=== PATIENT | male | born 1980 | race Caucasian/White ===

== ENCOUNTER 2018-01-20 06:53 | Emergency (ER) | payer BC ==
[2018-01-20 07:04] VITALS: RESP 18; TEMP 98.8
[2018-01-20] MEDS ORDERED: DIPH,PERTUS(ACELL)TETVAC-LF 0.5 ML VIAL IM ONE (07:14)
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
[2018-01-20 10:11] VITALS: BP 142/97; PULSE 64
== END 2018-01-20 10:09 | disposition home or self-care (01) ==
LOC: EC 06:53
DX: S61.411A Laceration without foreign body of right hand, initial encounter (principal); Z87.891 Personal history of nicotine dependence; Z23 Encounter for immunization; V19.9XXA Pedal cyclist (driver) (passenger) injured in unspecified traffic accident, initial encounter; W25.XXXA Contact with sharp glass, initial encounter; Y92.89 Other specified places as the place of occurrence of the external cause
CPT/HCPCS: 12002; 90471; 90715; 99283

== ENCOUNTER 2021-03-01 23:29 | Inpatient (IN) | payer BC ==
--- NOTE | 2021-03-02 00:34 | ED ---
Psych HPI - General Chief Complaint: Psychiatric Symptoms Stated Complaint: Mental Health Time Seen by Provider: 03/01/21 23:33 Source: patient, RN notes reviewed Mode of arrival: ambulatory Limitations: no limitations - History of Present Illness Initial Comments: 40-year-old male presents to the emergency Department with chief complaint of depression. Patient states been suffering compression for long period time he states that he drinks because of the depression. He states she's attempted to quit but states cannot stop drinking. He states she's had some suicidal thoughts he states his just hopeless denies any plan at this time. Patient does admit to marijuana use no other drug use. Patient states he drinks approximately a pint a day he has no history of seizures. Patient states she does not get severe withdrawal symptoms. Denies any physical complaints other states that he wakes up with bruises because he falls a lot. He states he has some bruising of his left eye but denies any blurred vision, headache, neck pain - Related Data Home Medications Medication Instructions Recorded Confirmed No Known Home Medications 01/20/18 01/20/18 Allergies Allergy/AdvReac Type Severity Reaction Status Date / Time No Known Allergies Allergy Verified 03/01/21 23:32 Review of Systems ROS Statement: Those systems with pertinent positive or pertinent negative responses have been documented in the HPI. ROS Other: All systems not noted in ROS Statement are negative. Past Medical History Past Medical History: No Reported History History of Any Multi-Drug Resistant Organisms: None Reported Past Surgical History: Appendectomy, Orthopedic Surgery Past Psychological History: No Psychological Hx Reported Smoking Status: Never smoker Past Alcohol Use History: Heavy Past Drug Use History: None Reported General Exam Limitations: no limitations General appearance: alert, in no apparent distress Head exam: Present: atraumatic, normocephalic, normal inspection Eye exam: Present: normal appearance, PERRL, EOMI, periorbital tenderness (Minimal left with ecchymosis noted). Absent: scleral icterus, conjunctival injection, periorbital swelling ENT exam: Present: normal exam, normal oropharynx, mucous membranes moist Neck exam: Present: normal inspection, full ROM. Absent: tenderness, meningismus, lymphadenopathy Respiratory exam: Present: normal lung sounds bilaterally. Absent: respiratory distress, wheezes, rales, rhonchi, stridor Cardiovascular Exam: Present: regular rate, normal rhythm, normal heart sounds. Absent: systolic murmur, diastolic murmur, rubs, gallop, clicks GI/Abdominal exam: Present: soft, normal bowel sounds. Absent: distended, tenderness, guarding, rebound, rigid Neurological exam: Present: alert, oriented X3, CN II-XII intact, reflexes normal. Absent: motor sensory deficit Psychiatric exam: Present: depressed Skin exam: Present: warm, dry, intact, normal color. Absent: rash Course Vital Signs 03/01/21 23:30 Temperature 98.2 F Pulse Rate 65 Respiratory 18 Rate Blood Pressure 154/107 O2 Sat by Pulse 97 Oximetry - Reevaluation(s) Reevaluation #1: 03/02/21 00:33 Patient offered benzodiazepines for possible withdrawal he states he does not have any symptoms that are bothersome. Medical Decision Making - Medical Decision Making Patient evaluated by EPS will be admitted for psychiatric treatment. Disposition Clinical Impression: Depression, Alcohol abuse Disposition: TRANSFER TO PSYCH HOSP/UNIT Condition: Stable Referrals: Elvis Pierce MD [Primary Care Provider] - 1-2 days
[2021-03-02] MEDS ORDERED: diazePAM 5 MG TAB PO STA (00:40)
[2021-03-02] MEDS ORDERED: LORazepam 1 MG TAB PO PRN ×2 (02:04)
[2021-03-02] MEDS ORDERED: ONDANSETRON ODT 4 MG TAB PO PRN (02:04)
[2021-03-02] MEDS ORDERED: LORazepam 2 MG/ML INJ IM PRN ×2 (02:04)
[2021-03-02] MEDS ORDERED: MAGNESIUM HYDROXIDE 2,400 MG/10 ML CUP PO PRN (02:04)
[2021-03-02] MEDS ORDERED: MAG HYDROX/AL HYDROX/SIMETH 30 ML CUP PO PRN (02:04)
[2021-03-02] MEDS ORDERED: HALOPERIDOL LACTATE 5 MG/ML 1 ML VIAL IM PRN (02:04)
[2021-03-02] MEDS: chlordiazePOXIDE 25 MG CAP PO SCH ×4 (02:48→22:20)
[2021-03-02 06:59] LABS: Basophils # (A) 0.1 k/uL (0-0.2); Basophils % (A) 1 %; Eosinophils # (A) 0.1 k/uL (0-0.7); Eosinophils % (A) 1 %; HCT 50.4 % (39.0-53.0); HGB 17.1 gm/dL (13.0-17.5); Lymphocytes # (A) 1.3 k/uL (1.0-4.8); Lymphocytes % (A) 12 %; MCH 31.1 pg (25.0-35.0); MCV 91.5 fL (80.0-100.0); Mean Platelet Volume 6.6; Monocytes # (A) 0.6 k/uL (0-1.0); Monocytes % (A) 5 %; Neutrophils # (A) 8.9 k/uL (1.3-7.7); Neutrophils % (A) 81 %; Platelet Count 281 k/uL (150-450); RBC 5.51 m/uL (4.30-5.90); RDW 12.9 % (11.5-15.5)
[2021-03-02 07:09] LABS: ALT 30 U/L (4-49); AST 43 U/L (17-59); African American GFR (CKD) >90 (>60 ml/min/1.73 sqM); Albumin 4.7 g/dL (3.5-5.0); Alkaline Phosphatase 97 U/L (38-126); Anion Gap 9 mmol/L; Bilirubin, Delta 0.2 mg/dL (0.0-0.2); Blood Urea Nitrogen 6 mg/dL (9-20); Calcium 9.7 mg/dL (8.4-10.2); Carbon Dioxide 27 mmol/L (22-30); Chloride 106 mmol/L (98-107); Glucose 106 mg/dL (74-99); Non-African American GFR(CKD) >90 (>60 ml/min/1.73 sqM); Potassium 4.1 mmol/L (3.5-5.1); Sodium 142 mmol/L (137-145); Total Bilirubin 1.2 mg/dL (0.2-1.3); Total Protein 7.4 g/dL (6.3-8.2)
[2021-03-02] MEDS ORDERED: NICOTINE 14MG/24HR PATCH TRANSDERM SCH (09:00)
[2021-03-02] MEDS ORDERED: cloNIDine 0.2 MG/24HR PATCH TRANSDERM SCH (09:30)
[2021-03-02] MEDS: OLANZapine 5 MG TAB PO SCH ×3 (10:28→22:20)
[2021-03-02 14:42] LABS: Chol/HDL Ratio 3.37; Cholesterol 199 mg/dL (0-200); LDL Cholesterol,Calculated 119.2 mg/dL (0.0-131.0)
[2021-03-02 15:11] LABS: Hemoglobin A1C 5.4 % (4.0-6.0)
[2021-03-03] MEDS: OLANZapine 5 MG TAB PO SCH ×3 (09:05→21:53)
[2021-03-03] MEDS: chlordiazePOXIDE 25 MG CAP PO SCH (09:05)
--- NOTE | 2021-03-03 13:38 | PN ---
PROGRESS NOTE DATE OF SERVICE: 03/03/2021. CHIEF COMPLAINT: The patient presented with depression. He has relapsed into drinking. He has a long- term drinking history and has struggled to attain sobriety. INTERVAL HISTORY: Patient has been doing fair. He had a quiet day yesterday. He tends to keep to himself. He will wander the unit. He does not interact much with others. He has a reserved manner. He attended 2 groups yesterday and seemed to be comfortable in the groups. He said he slept fair last night. Today he has been up. He comes out in the day area. Again, he has been wandering about. He mostly keeps to himself. CIWA scores included a score of 14 at 0039 hours. He was started on Librium. His next score at 3:00 am came down to a 7. He has had a lower score since then. Today, his scores have been 0, though he has been on a fairly high dose of Librium 50 mg 3 times a day. We discussed discharge planning issues. He was given the number for [facility] to determine what outpatient resources are available. He tolerates his psychotropic medications. MENTAL STATUS: Patient sat without restlessness. Eye contact was fair. Psychomotor activity was slowed. Speech was monotone. He answered questions with brief responses. He asked a few appropriate questions. It is noteworthy that initially he had a very withdrawn manner, though when we talked about the process of withdrawal and longer-term treatment issues for depression, he did show a little more responsiveness in the interview. His affect was constricted. His mood was depressed. He was moderately distressed. There was no indication for thought disorder. Cognition was clear. ASSESSMENT: I will continue the current diagnosis and treatment plan. I will initiate a tapering schedule for Librium. At this point I would aim for discharge on Sunday. Given that he had a significant CIWA score before getting started on Librium and he is that at this point only 48 hours into withdrawal, he continues to be at risk for seizures and DTs from acute alcohol withdrawal. We will focus on stabilization and discharge planning. MMODL / BRIANNEN: [id number] /
--- NOTE | 2021-03-03 13:54 | HP ---
HISTORY AND PHYSICAL DATE OF SERVICE: 03/02/2021 IDENTIFYING DATA: The patient is a 40-year-old male. He resides with his and 3 children. He presented to the ED for evaluation. CHIEF COMPLAINT: The patient was depressed. He has been struggling with alcohol dependence with efforts at sobriety, though has failed several attempts. HISTORY OF PRESENTING ILLNESS: The patient was the source of information. He has not had a prior psychiatric hospitalization. He notes that he has had significant issues with drinking over much of his adult life. He has been trying to quit. He said going back to August he stopped drinking for about 2 months though then relapsed in early October. Again in the spring, he made an effort to quit and stopped drinking for a number of weeks, though again relapsed. He says that he has been struggling with this for a long period of time. He feels he has a support of his and children, though it has been an extremely difficult road for him. He was more depressed each time he relapses to drinking. He notes that his brother also has significant alcohol abuse issues and in fact had shelter time for DUI. He said he just found out that his brother has been sober for about 6 months, which caught him by surprise. He notes that he has been having increasing problems with depression. He sleeps poorly he has loss of motivation energy and interest. He says that he continues to work though feels a lot of stress at work. He gets very frustrated with others at work who he believes do not keep up with the work they should be doing and that a lot falls on his shoulders. He has had some substance abuse treatment in the past including [facility], though feels that was not very helpful for him. He is not currently on any psychotropic medications. He is not involved in any mental health treatment of any sort. He said that he has tried AA as well, though found that it was difficult for him to relate to others. He noted that when he was at [facility], he would sit and listen to young people who talked about all other drug abuse issues and he just could not connect to anything they had to say as far as what would help him. He notes no use of other abusive substances. The patient reports no current or past issues with hallucinations or delusions. He has not had significant panic issues. He was vague about whether he has had any posttraumatic issues. He says at least in his childhood, he felt things were stable and that he had a supportive family. He is admitted for further evaluation. SUBSTANCE USE HISTORY: As above. In regard to the patient's drinking history, he notes that when he relapses he gets back into very heavy drinking very quickly. He says on the weekends he will start drinking from the first thing in the morning. He will drink until he passes out. When he wakes up, he will continue to drink more. He acknowledged that he drinks at least 2 pints or more of whiskey a day when he drinks on the weekends. On the weekdays, he will drink after work. PAST MEDICAL HISTORY: The patient reports no significant or chronic general health complaints. 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 His also does factory work. He says it has been harder and harder for him to keep up with his work because of his drinking. He lives with his who he says is very supportive. They also have 3 children in the house, ages 21, 18 and 16. MENTAL STATUS EXAM: The patient sat with some restlessness. He gave fair eye contact. Psychomotor activity was somewhat slowed. He answered questions with brief responses. His thoughts were clear and coherent. He was not to spontaneous or interactive. His affect was flat. His mood depressed. He was significantly distressed. There was no indication of thought disorder. He voiced no thoughts of harm, though acknowledged a lot of hopeless feelings. On cognitive exam, he was oriented x3 and alert. He did make an effort to answer formal cognitive questions though was able to give an accurate history based on what was documented in the medical record. DIAGNOSES: 1. Major depression. 2. Alcohol dependence and acute alcohol withdrawal. RECOMMENDATIONS: Patient will be admitted for comprehensive medical, psychiatric and psychosocial evaluation. We will engage the patient in individual and group therapeutic activities. I will start the patient on Zyprexa 5 mg 3 times a day. The aim of Zyprexa is to help reduce physiologic stress response relating to acute alcohol withdrawal. In addition, I will start the patient on Catapres 0.2 mg patch also to help ameliorate withdrawal symptoms. In addition, the patient has had some moderate elevation of blood pressure with his pressure this morning being 139/93, I would anticipate the clonidine being beneficial for that as well. The patient states that he is not interested in going into an inpatient program, but wants to put together an outpatient substance abuse program to help him gain sobriety. We will work on connecting him with resources and supports. We can refer him for outpatient substance use treatment. We will focus on stabilization and discharge planning. NITIN / LARISSA: [id number] /
[2021-03-03 22:00] VITALS: RESP 18
[2021-03-04] MEDS: OLANZapine 5 MG TAB PO SCH ×3 (09:24→21:52)
[2021-03-04] MEDS: ACETAMINOPHEN TAB 325 MG TAB PO PRN (09:24)
[2021-03-04] MEDS: BENZOCAINE/MENTHOL LOZENG 1 EACH LOZENGE MUCOUS MEM PRN ×2 (17:14→21:53)
--- NOTE | 2021-03-04 18:53 | PN ---
PROGRESS NOTE DATE OF SERVICE: 03/04/2021. CHIEF COMPLAINT: The patient was depressed. He has been struggling with alcohol dependence with efforts at sobriety, though has failed several attempts. INTERVAL HISTORY: Patient has been doing fair. He had a quiet day yesterday. He comes out on the unit. He tends to keep to himself. He does not interact too much with others. He presents most of the time in a very quiet, reserved manner. He attends some of the groups and seems to be comfortable in the groups, though he again presents there in a quiet manner as well. He slept fair last night. He was a little vague on specifics of that. Today, he has been up and again presents pretty much the same. He attended 2 groups today. His CIWA scores today have been 4 at 12:00 pm 7 at 9:00 am, and 0 at midnight. He does complain of a sore throat and says that he has been coughing up some green phlegm. He says that his biggest complaint today is that the sore throat has been bothering him all day. When I asked him about a range of symptoms, he might be experiencing related to alcohol withdrawal, he tended to minimize any problems he was having. It is noted that his pulse has been up and today at 9:20 am it was 135, which is the highest it has been. Blood pressure is 115/82. He tolerates his psychotropic medications. It is noted that the game plan has been for him to work on an outpatient plan for himself. He has very serious drinking issues, where he describes on the weekends, he will start drinking the 1st thing in the morning. He will drink till he passes out and when he gets up again, he will drink more. It is noted when I asked him if he and his have talked and looked at any planning towards a program of abstinence, his response was "I will deal with that when I am home." His level of either insight or motivation are a significant question. MENTAL STATUS: Patient sat without restlessness. Eye contact was fair. Psychomotor activity was slowed. Speech was monotone. He answered questions with brief responses. He did not say much. He was not spontaneous or interactive. His affect was flat. His mood reserved. It was difficult to determine if he was significantly depressed at all. There was no indication of his being distressed. He voiced no thoughts of harm. He was oriented to his circumstances and surroundings. ASSESSMENT: I will continue the current diagnosis and treatment plan. We have the patient on a tapering schedule of Tofranil, so that by Sunday, he will be down to 10 mg twice a day and ultimately it could be discontinued altogether. It is noteworthy that the game plan has been for him to work on developing a program for himself to make efforts to achieve sobriety. He did say he is willing to be referred for outpatient substance abuse counseling. He notes that he has had some issues with some contacts with the therapist in the past. It is very difficult to assess his level of motivation to follow through with treatment. He seems to keep his issues close to the vest. I have provided him with a number of handouts that address issues relating to alcohol withdrawal. It would be helpful to have Social Work have a contact with the patient's . He describes her as supportive. It will be a positive to see if she has any input in regard to planning out his discharge. We will focus on stabilization and discharge planning. NITIN / LARISSA: [id number] / SHARON
[2021-03-04] MEDS: guaiFENesin 600 MG TABLET.ER PO SCH (21:52)
[2021-03-05 07:50] LABS: Basophils # (A) 0.1 k/uL (0-0.2); Basophils % (A) 1 %; Eosinophils # (A) 0.2 k/uL (0-0.7); Eosinophils % (A) 2 %; HCT 54.1 % (39.0-53.0); Lymphocytes # (A) 1.5 k/uL (1.0-4.8); Lymphocytes % (A) 14 %; MCH 32.6 pg (25.0-35.0); MCV 93.2 fL (80.0-100.0); Mean Platelet Volume 6.8; Monocytes # (A) 0.5 k/uL (0-1.0); Monocytes % (A) 5 %; Neutrophils # (A) 8.2 k/uL (1.3-7.7); Neutrophils % (A) 78 %; Platelet Count 226 k/uL (150-450); RDW 12.7 % (11.5-15.5); WBC 10.5 k/uL (3.8-10.6)
[2021-03-05 07:54] LABS: African American GFR (CKD) >90 (>60 ml/min/1.73 sqM); Anion Gap 10 mmol/L; Blood Urea Nitrogen 14 mg/dL (9-20); Carbon Dioxide 27 mmol/L (22-30); Chloride 105 mmol/L (98-107); Glucose 87 mg/dL (74-99); Non-African American GFR(CKD) 87 (>60 ml/min/1.73 sqM); Potassium 4.7 mmol/L (3.5-5.1); Sodium 142 mmol/L (137-145)
[2021-03-05] MEDS: ACETAMINOPHEN TAB 325 MG TAB PO PRN (08:59)
[2021-03-05] MEDS: OLANZapine 5 MG TAB PO SCH ×3 (08:59→22:27)
[2021-03-05] MEDS: guaiFENesin 600 MG TABLET.ER PO SCH ×2 (08:59→22:27)
[2021-03-05] MEDS: BENZOCAINE/MENTHOL LOZENG 1 EACH LOZENGE MUCOUS MEM PRN (09:00)
--- NOTE | 2021-03-05 13:42 | P.PN ---
Progress Note - Text Progress Note Date: 03/05/21 Interval History: Patient was seen in his room and was directable and agreeable to speak with television writer. 40-year-old male presents to the emergency Department with chief complaint of depression. Patient states been suffering compression for long period time he states that he drinks because of the depression. . Patient denies any side effects from the medications and has been compliant with meds. Mental Status Exam: General Appearance: Patient appears to be stated age is alert, directable, and cooperative. Behavior: Patient is calmly seated without any agitated behavior. Speech: Patient's speech is fluent and nonpressured. Mood/Affect: Mood is improving mildly, affect is congruent and constricted. Suicidality/Homicidality: Patient denies having any suicidal or homicidal ideation intent or plan. Perceptions: Patient denies any visual hallucinations and denies any auditory hallucinations Though content/process: There is no evidence of any delusional thought content and thought process is linear and goal-directed. Memory and concentration: AOX3, grossly intact for the purposes of this session Judgment and insight: Improving mildly Assessment Patient continues to show neurovegetative symptoms of depression Plan: -Patient continues to meet criteria for inpatient psychiatric admission for symptom stabilization and safety. -Medications: Continue medication as before -When necessary Ativan and Haldol for agitation/aggression. -SW on board for discharge planning. Encouraged the patient to participate in milieu.
[2021-03-06] MEDS: OLANZapine 5 MG TAB PO SCH ×3 (08:11→20:44)
[2021-03-06] MEDS: guaiFENesin 600 MG TABLET.ER PO SCH ×2 (08:11→20:44)
--- NOTE | 2021-03-06 10:13 | P.PN ---
Progress Note - Text Progress Note Date: 03/06/21 Interval History: Patient was seen in the room and was directable and agreeable to speak with technical publications writer . Patient states been suffering compression for long period time he states that he drinks because of the depression. He states she's attempted to quit but states cannot stop drinking. Patient denies any auditory, visual hallucinations and denies any paranoia or delusions. Patient denies any side effects from the medications and has been compliant with meds. Mental Status Exam: General Appearance: Patient appears to be stated age is alert, directable, and cooperative. Behavior: Patient is calmly seated without any agitated behavior. Speech: Patient's speech is fluent and nonpressured. Mood/Affect: Mood is improving mildly, affect is congruent and constricted. Suicidality/Homicidality: Patient denies having any suicidal or homicidal ideation intent or plan. Perceptions: Patient denies any visual hallucinations and denies any auditory hallucinations Though content/process: There is no evidence of any delusional thought content and thought process is linear and goal-directed. Memory and concentration: AOX3, grossly intact for the purposes of this session Judgment and insight: Improving mildly Assessment Depression, Alcohol abuse Plan: -Patient continues to meet criteria for inpatient psychiatric admission for symptom stabilization and safety. -Medications: Continue medication as before -When necessary Ativan and Haldol for agitation/aggression. -SW on board for discharge planning. Encouraged the patient to participate in milieu.
[2021-03-07 06:09] VITALS: BP 131/86; PULSE 97; TEMP 97.1
--- NOTE | 2021-03-07 07:12 | CONS ---
CONSULTATION A 40-year-old white male admitted to the hospital for severe depression and severe alcohol withdrawal. He is on Catapres patch for blood pressure. Blood pressure is doing well. Ativan p.r.n. for alcohol withdrawal. He is having no chest pain, shortness of breath. He drinks alcohol due to depression. Psychiatry saw him for depression. He is up ambulating, talking to me normally. Vital signs stable. Afebrile. CARDIOVASCULAR: S1, S2. Lungs clear. BMI is below 30. Neurologic with minimal tremor. Psych: Giving appropriate answers. Neurologic intact. Integument no rash. ASSESSMENT: 1. Alcohol withdrawal. 2. Depression. 3. Hypertension. 4. Tachycardia. Continue current treatments including Catapres, Haldol, Ativan, Zyprexa. Medically, no signs of alcohol withdrawal at this time. He is up ambulating with minimal tremor. Giving appropriate answers, eating well. MMODL / IJN: [id number] /
[2021-03-07] MEDS: OLANZapine 5 MG TAB PO SCH (08:43)
[2021-03-07] MEDS: guaiFENesin 600 MG TABLET.ER PO SCH (08:43)
[2021-03-07] MEDS ORDERED: NALTREXONE HCL 50 MG TAB PO STA (10:21)
--- NOTE | 2021-03-07 10:27 | P.PN ---
Progress Note - Text Progress Note Date: 03/07/21 Interval History: Patient was seen wandering the hallways and was directable and agreeable to speak with casualty underwriter in the office. The patient reports that he is feeling. He states that he is wanting to go to rehabilitation for his alcohol use disorder. He is currently not reporting any suicidal or homicidal ideation, intention, and/or plan. He is denying any auditory or visual hallucinations. He is not reporting any paranoia or delusions. He states that he is willing to go to rehabilitation and contacted the access number to try and get admitted to alcohol rehabilitation at [facility]. He is not reporting any issues with sleep or appetite. He states that his withdrawal symptoms appeared to be well- controlled. He has never tried naltrexone before and is willing to try the medication today. Mental Status Exam: General Appearance: Patient appears to be stated age is alert, directable, and cooperative. Behavior: Patient is calmly seated without any agitated behavior. Normal psychomotor activity. Eye contact is appropriate. Speech: Patient's speech is fluent and nonpressured. Spontaneous, normal rate, tone, and volume. Mood/Affect: Mood is improving mildly, affect is congruent and constricted. Suicidality/Homicidality: Patient denies having any suicidal or homicidal ideation intent or plan. Perceptions: Patient denies any visual hallucinations and denies any auditory hallucinations Though content/process: There is no evidence of any delusional thought content and thought process is linear and goal-directed. Memory and concentration: AOX3, grossly intact for the purposes of this session Judgment and insight: Improving mildly Vital Signs Temp 97.1 F L 03/07/21 03:04 Pulse 97 03/07/21 03:04 Resp 18 03/07/21 03:04 BP 131/86 03/07/21 03:04 Pulse Ox 95 03/02/21 02:55 Intake & Output 03/06/21 03/07/21 03/07/21 18:59 06:59 18:59 Weight 83.8 kg Assessment Major depressive disorder, recurrent Alcohol use disorder Plan: -Patient continues to meet criteria for inpatient psychiatric admission for symptom stabilization and safety. Patient has signed adult voluntary form and medication consent and was placed in patient's chart. -Medications: Continue Zyprexa 5 mg by mouth 3 times a day for mood augmentation Start naltrexone 50 mg by mouth daily for alcohol use disorder Decrease Librium to 10 mg by mouth daily for alcohol withdrawal -When necessary Ativan and Haldol for agitation/aggression. -SW on board for discharge planning. Encouraged the patient to participate in milieu.
--- NOTE | 2021-03-07 13:07 | P.DS ---
Providers Date of admission: 03/02/21 01:57 Expected date of discharge: 03/07/21 Attending physician: Jeff Saeed MD Consults: 03/02/21 02:04 Consult Physician Routine Consulting Provider: Fahad Pierce Consult Reason/Comments: H & P Do you want consulting provider notified?: Yes, Notify in am Primary care physician: Elvis Pierce - Discharge Diagnosis(es) (1) Major depressive disorder Current Visit: Yes Status: Acute Priority: High (2) Alcohol abuse Current Visit: Yes Status: Chronic Priority: Medium Hospital Course: Admission HPI: Initial psychiatric evaluation was completed by Dr. Callejas on 03/02/2021 who wrote: "The patient is a 40-year-old male. He resides with his and 3 children. He presented to the ED for evaluation. The patient was depressed. He has been struggling with a cold dependence with efforts at sobriety, though has failed several times. The patient was a source of information. He has not had prior psychiatric hospitalizations. He notes that he has had significant issues of drinking over much of his adult life. He has been trying to quit. He said going back to August he stopped drinking for about 2 months though relapsed in early October. Again in the spring, he made an effort to quit and stop drinking for a number of weeks, though again relapsed. He says he has been struggling with this for a long period of time. He feels that he has a supportive his and children, though it has been an extremely difficult for him. He was more depressed each time he relapses into drinking. He notes that his brother has also a significant alcohol abuse issues and has in fact had long term time for a DUI. He said he just found out that his brother has been sober for about 6 months, which caught by surprise. He notes that he has been having increasing problems with depression. He sleeps poorly, he has lost motivation, energy, and interest. He says that he continues to work though he feels a lot of stress at work. He gets very frustrated with others at work and believes they do not keep up with the work they should be doing and that a lot falls on his shoulders. He has had some substance abuse treatment in the past including [facility], though feels that was not very helpful for him. He is not currently on any psychotropic medications. He is not involved in any mental health treatment of any sort. He said that he has tried AA as well though found that it was difficult for him to relate to others. He noted that while he was at [facility], he would sit most young people talked about all other drug abuse issues and he could just not connect anything bad to say as far as what would help him. He notes no other abusive substances. The patient reports no current or past issues with hallucinations or delusions. He has not had significant panic issues. He was vague about whether he has had any posttraumatic issues. He says at least in his childhood, he felt things were stable and that he had a supportive family. He is admitted for further evaluation." Hospital course: Upon admission to the unit patient was initially noted to be depressed and undergoing significant alcohol withdrawal. Patient was however directable and agreeable to commence treatment. The patient was started on Zyprexa by Dr. Callejas to help reduce the physiological stressors son's relating to alcohol withdrawal. In addition, the patient was also started on Catapres to help ameliorate withdrawal symptoms. The patient was also started on Librium. Over the course of the hospitalization, the patient was adherent with his medications and participated in both individual and milieu activities. The patient displayed significant improvement in regards to his acute alcohol withdrawal symptoms this morning scored a CIWA score of 0. He was willing to start a trial of naltrexone. On the day of discharge, the patient is not reporting any suicidal or homicidal ideation, intention, and/or plan. He denies any access to firearms or other weapons. He reports a strong desire to live for himself and for his family. He is future oriented and is planning to return to rehabilitation for his alcohol abuse. He is not reporting any auditory or visual hallucinations. He denies any paranoia or other delusions. He reports no issues regarding his sleep or his appetite. He has been adherent with his medications and is not reporting any significant side effects at this time. The patient was counseled at length on being adherent with his medications as well as following up with his outpatient appointments both for mental health and for primary care. The patient was counseled on abstaining from all substances including alcohol and marijuana. He plans on going to rehabilitation shortly after discharge. Prior to discharge, social work will contact the family to arrange family meeting to ensure safety. Mental status exam: General Appearance: Patient appears to be stated age is alert, pleasant, and cooperative. Patient is in no acute distress and has fair hygiene and grooming Behavior: Patient is calmly seated without any agitated behavior. Speech: Patient's speech is fluent and nonpressured. Spontaneous with normal rate, tone, and volume. Mood/Affect: Patient reports their mood is "much better", affect is congruent and euthymic to bright. Suicidality/Homicidality: Patient denies having any suicidal or homicidal ideation intent or plan. Perceptions: Patient denies any auditory or visual hallucinations. Though content/process: There is no evidence of any delusional thought content and thought process is linear and goal-directed. He is future oriented. Memory and concentration: AOX3, grossly intact for the purposes of this session. Can spell "WORLD" backwards correctly. Judgment and insight: Improved with guarded prognosis Vital Signs Temp 97.1 F L 03/07/21 03:04 Pulse 97 03/07/21 03:04 Resp 18 03/07/21 03:04 BP 131/86 03/07/21 03:04 Pulse Ox 95 03/02/21 02:55 Intake & Output 03/06/21 03/07/21 03/07/21 18:59 06:59 18:59 Weight 83.8 kg Impression: Major depressive disorder, recurrent, severe Alcohol use disorder Plan: -Continue with discharge today as patient has improved and stabilized psychiatrically and is not currently an imminent threat to himself and/or others. Patient will remain at chronically elevated risk for harm to self and/or others due to his alcohol use disorder . -Continue medications: Zyprexa 5 mg by mouth 3 times a day for mood stabilization Naltrexone 50 mg by mouth daily for alcohol abuse. -Patient was counseled on the need for medication compliance and appropriate follow-up at mental health and also primary care for medical issues. Patient v erbalized understanding and agreed. -Social work to arrange for and conduct family meeting to ensure safety upon discharge and answer any questions/concerns. Social work also to arrange for patients follow up appointments for psychiatric care along with follow up with primary care provider. -Patient counseled on abstaining from recreational drugs and marijuana and alcohol. Was informed/educated on the adverse effects on their physical and mental health. Patient verbally agreed and understood. Patient was offered substance abuse treatment and will pursue it in the outpatient setting. -Patient was instructed to return to the hospital or seek immediate medical care if their psychiatric or medical symptoms do worsen or reoccur. -Psychoeducation and supportive therapy provided to patient. Risks and benefits of pharmacological treatment versus the risks and benefits of nontreatment weight and discussed. Informed consent discussion held. Common side effects of psychotropics discussed such as, but not limited to headache, GI disturbance, sexual dysfunction, movement disorders, sedation, and orthostatic hypotension. Life threatening and blackbox warnings of prescribed medications also discussed. Potential risks of operating a vehicle or heavy machinery discussed with patient at length. Advised on importance of compliance and a reliable and responsible manner. Patient advised to review FDA consumer labeling of all medications prior to taking. Patient verbalized understanding of potential risks, and agrees with current treatment plan. Patient advised to medically contact physician/emergency personnel if any acute changes in condition occur. Allergies Allergy/AdvReac Type Severity Reaction Status Date / Time No Known Allergies Allergy Verified 03/02/21 03:14 Laboratory Results WBC 10.5 k/uL (3.8-10.6) 03/05/21 07:28 RBC 5.80 m/uL (4.30-5.90) 03/05/21 07:28 Hgb 19.0 gm/dL (13.0-17.5) H 03/05/21 07:28 Hct 54.1 % (39.0-53.0) H 03/05/21 07:28 MCV 93.2 fL (80.0-100.0) 03/05/21 07:28 MCH 32.6 pg (25.0-35.0) 03/05/21 07:28 MCHC 35.0 g/dL (31.0-37.0) 03/05/21 07:28 RDW 12.7 % (11.5-15.5) 03/05/21 07:28 Plt Count 226 k/uL (150-450) 03/05/21 07:28 MPV 6.8 03/05/21 07:28 Neutrophils % 78 % 03/05/21 07:28 Lymphocytes % 14 % 03/05/21 07:28 Monocytes % 5 % 03/05/21 07:28 Eosinophils % 2 % 03/05/21 07:28 Basophils % 1 % 03/05/21 07:28 Neutrophils # 8.2 k/uL (1.3-7.7) H 03/05/21 07:28 Lymphocytes # 1.5 k/uL (1.0-4.8) 03/05/21 07:28 Monocytes # 0.5 k/uL (0-1.0) 03/05/21 07:28 Eosinophils # 0.2 k/uL (0-0.7) 03/05/21 07:28 Basophils # 0.1 k/uL (0-0.2) 03/05/21 07:28 Sodium 142 mmol/L (137-145) 03/05/21 07:28 Potassium 4.7 mmol/L (3.5-5.1) 03/05/21 07:28 Chloride 105 mmol/L (98-107) 03/05/21 07:28 Carbon Dioxide 27 mmol/L (22-30) 03/05/21 07:28 Anion Gap 10 mmol/L 03/05/21 07:28 BUN 14 mg/dL (9-20) 03/05/21 07:28 Creatinine 1.06 mg/dL (0.66-1.25) 03/05/21 07:28 Est GFR (CKD-EPI)AfAm >90 (>60 ml/min/1.73 sqM) 03/05/21 07:28 Est GFR (CKD-EPI)NonAf 87 (>60 ml/min/1.73 sqM) 03/05/21 07:28 Glucose 87 mg/dL (74-99) 03/05/21 07:[address] Glu mg/dL 108 03/02/21 06:22 Hemoglobin A1c 5.4 % (4.0-6.0) 03/02/21 06:22 Calcium 10.0 mg/dL (8.4-10.2) 03/05/21 07:28 Total Bilirubin 1.2 mg/dL (0.2-1.3) 03/02/21 06:22 Conjugated Bilirubin 0.0 mg/dL (0.0-0.3) 03/02/21 06:22 Unconjugated Bilirubin 1.0 mg/dL (0.0-1.1) 03/02/21 06:22 Delta Bilirubin 0.2 mg/dL (0.0-0.2) 03/02/21 06:22 AST 43 U/L (17-59) 03/02/21 06:22 ALT 30 U/L (4-49) 03/02/21 06:22 Alkaline Phosphatase 97 U/L (38-126) 03/02/21 06:22 Total Protein 7.4 g/dL (6.3-8.2) 03/02/21 06:22 Albumin 4.7 g/dL (3.5-5.0) 03/02/21 06:22 Triglycerides 104.0 mg/dL (0.0-149.0) 03/02/21 06:22 Cholesterol 199 mg/dL (0-200) 03/02/21 06:22 LDL Cholesterol, Calc 119.2 mg/dL (0.0-131.0) 03/02/21 06:22 VLDL Cholesterol, Calc 20.80 mg/dL (5.00-40.00) 03/02/21 06:22 HDL Cholesterol 59.0 mg/dL (40.0-60.0) 03/02/21 06:22 Cholesterol/HDL Ratio 3.37 03/02/21 06:22 TSH 2.770 mIU/L (0.465-4.680) 03/02/21 06:22 Patient Condition at Discharge: Stable Plan - Discharge Summary Discharge Rx Participant: No New Discharge Prescriptions: New Naltrexone HCl [Revia] 50 mg PO DAILY 30 Days tab guaiFENesin [Mucinex] 600 mg PO Q12HR #0 tablet.er OLANZapine [ZyPREXA] 5 mg PO TID 30 Days tab Discharge Medication List Naltrexone HCl [Revia] 50 mg PO DAILY 30 Days tab 03/07/21 [Rx] OLANZapine [ZyPREXA] 5 mg PO TID 30 Days tab 03/07/21 [Rx] guaiFENesin [Mucinex] 600 mg PO Q12HR #0 tablet.er 03/07/21 [Rx] Follow up Appointment(s)/Referral(s): Pedro Guerrero [Other] - 03/10/21 4:00 pm (Please arrive 15-20 miutes prior to appointment for paperwork Malissa Corona therapist ) Elvis Pierce MD [Primary Care Provider] - 1-2 days Patient Instructions/Handouts: Depression (DC) Activity/Diet/Wound Care/Special Instructions: Activity and diet as tolerated. Avoid the use of street drugs and alcohol. Take all medications as prescribed. When you are in need of refills on your medications please contact your medical provider and/or outpatient psychiatrist to have this done. Please go to scheduled outpatient appointment for aftercare treatment. If symptoms return or become worse, call the crisis line at and/or go to the nearest emergency room for evaluation. Discharge Disposition: HOME SELF-CARE
[2021-03-08] MEDS ORDERED: NALTREXONE HCL 50 MG TAB PO SCH (09:00)
== END 2021-03-07 13:47 | disposition home or self-care (01) | DRG 897 ==
LOC: EC 23:29 → 3MHU 03-02 01:57
PROVIDERS: ADMIT Psychiatry & Neurology Psychiatry; ATTEND Psychiatry & Neurology Psychiatry
PROC: HZ2ZZZZ Detoxification Services for Substance Abuse Treatment (ICD-10-PCS; principal; 2021-03-02)
DX: F10.239 Alcohol dependence with withdrawal, unspecified (principal); F33.2 Major depressive disorder, recurrent severe without psychotic features; I10 Essential (primary) hypertension; R00.0 Tachycardia, unspecified
CPT/HCPCS: 80048; 80053; 80061; 82075; 82248; 83036; 84443; 85025; 99285

== ENCOUNTER 2021-04-19 00:13 | Emergency (ER) | payer BC ==
[2021-04-19 00:19] VITALS: TEMP 97.8
[2021-04-19] MEDS ORDERED: SODIUM CHLORIDE 0.9% 1,000 ML IV ONE (00:20)
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
--- NOTE | 2021-04-19 00:41 | XR ---
EXAMINATION TYPE: XR chest 1V portable DATE OF EXAM: 04/19/2021 COMPARISON: NONE HISTORY: Chest pain. Fall. TECHNIQUE: FINDINGS: Heart and mediastinum are normal. Lungs are clear. Diaphragm is normal. Bony thorax is inta ct. There are chest leads. IMPRESSION: Normal chest. No evidence of traumatic injury.
--- NOTE | 2021-04-19 00:52 | CT ---
EXAMINATION TYPE: CT brain carmen wo con DATE OF EXAM: 04/19/2021 COMPARISON: CT brain 01/15/2012 HISTORY: Fall CT DLP: 784.50 mGycm Automated exposure control for dose reduction was used. Ventricles and sulci appear normal. There is no mass effect nor midline shift. There is no sign of in tracranial hemorrhage. The calvarium is intact. There is right lateral frontal scalp hematoma. This m easures 1.7 cm in thickness. The skull base is intact. There is normal aeration of the mastoid sinuse s. The cervical vertebra have normal alignment. Posterior elements are intact. There is no compression f racture. Disc spaces are fairly normal. Facet joints are intact. Prevertebral soft tissues are intact . IMPRESSION: Negative CT scan of the cervical spine. No fracture. Negative CT scan of the brain. Right frontal scalp hematoma.
--- NOTE | 2021-04-19 00:55 | CT ---
EXAMINATION TYPE: CT facial bones wo con DATE OF EXAM: 04/19/2021 COMPARISON: None HISTORY: Fall CT DLP: 461.8 mGycm Automated exposure control for dose reduction was used. Images obtained from the bottom of the mandible to the top of the frontal sinuses with no contrast. The mandibular ring is intact. Temporomandibular joints appear intact. Zygomatic arches appear normal . Maxilla is intact. There is minimal mucosal thickening in the left maxillary sinus. The nasal bone is intact. The orbital margins are intact. There is no evidence of orbital blowout fracture. There is no retro-orbital mass. There is right lateral frontal scalp soft tissue swelling. There is subcutane ous hematoma that measures 1.5 cm in thickness over the lateral right orbital bone. IMPRESSION: No facial bone fracture. Lateral right frontal and periorbital scalp hematoma.
[2021-04-19 00:57] LABS: Basophils # (A) 0.1 k/uL (0-0.2); Basophils % (A) 1 %; Eosinophils # (A) 0.2 k/uL (0-0.7); Eosinophils % (A) 2 %; HCT 48.4 % (39.0-53.0); HGB 16.7 gm/dL (13.0-17.5); Lymphocytes # (A) 2.8 k/uL (1.0-4.8); Lymphocytes % (A) 25 %; MCH 32.3 pg (25.0-35.0); MCHC 34.6 g/dL (31.0-37.0); MCV 93.5 fL (80.0-100.0); Mean Platelet Volume 7.2; Monocytes # (A) 0.6 k/uL (0-1.0); Monocytes % (A) 5 %; Neutrophils # (A) 7.5 k/uL (1.3-7.7); Neutrophils % (A) 66 %; Platelet Count 249 k/uL (150-450); RBC 5.18 m/uL (4.30-5.90); RDW 13.9 % (11.5-15.5); WBC 11.4 k/uL (3.8-10.6)
[2021-04-19 01:02] LABS: Partial Thromboplastin Time 24.8 sec (22.0-30.0); Prothrombin Time 10.6 sec (9.0-12.0)
[2021-04-19 01:05] LABS: ALT 23 U/L (4-49); AST 36 U/L (17-59); African American GFR (CKD) >90 (>60 ml/min/1.73 sqM); Albumin 4.4 g/dL (3.5-5.0); Alkaline Phosphatase 81 U/L (38-126); Anion Gap 15 mmol/L; Blood Urea Nitrogen 15 mg/dL (9-20); Carbon Dioxide 24 mmol/L (22-30); Chloride 105 mmol/L (98-107); Glucose 101 mg/dL (74-99); Magnesium 2.1 mg/dL (1.6-2.3); Non-African American GFR(CKD) >90 (>60 ml/min/1.73 sqM); Phosphorus 3.7 mg/dL (2.5-4.5); Potassium 3.6 mmol/L (3.5-5.1); Sodium 144 mmol/L (137-145); Total Bilirubin 0.4 mg/dL (0.2-1.3); Total Protein 6.9 g/dL (6.3-8.2)
[2021-04-19 01:46] LABS: Alcohol 372 mg/dL
[2021-04-19 03:23] VITALS: BP 93/54; PULSE 92; RESP 18
== END 2021-04-19 03:00 | disposition home or self-care (01) ==
LOC: EC 00:13
DX: F10.129 Alcohol abuse with intoxication, unspecified (principal); S00.83XA Contusion of other part of head, initial encounter; F32.9 Major depressive disorder, single episode, unspecified; F41.9 Anxiety disorder, unspecified; Z90.49 Acquired absence of other specified parts of digestive tract; W01.0XXA Fall on same level from slipping, tripping and stumbling without subsequent striking against object, initial encounter; Y90.8 Blood alcohol level of 240 mg/100 ml or more
CPT/HCPCS: 36415; 70450; 70486; 71045; 72125; 80053; 80320; 83735; 84100; 85025; 85610; 85730; 93005; 96360; 99285

== ENCOUNTER 2024-05-02 00:57 | Emergency (ER) | payer BC ==
[2024-05-02 01:04] VITALS: RESP 18; TEMP 98
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
[2024-05-02] MEDS: IBUPROFEN 800 MG TAB PO STA (01:39)
[2024-05-02] MEDS: ACETAMINOPHEN TAB 500 MG TAB PO STA (01:39)
[2024-05-02 02:23] VITALS: BP 133/75; PULSE 75
--- NOTE | 2024-05-02 04:18 | XR ---
EXAM: XR Right Ankle Complete, 3 Views CLINICAL HISTORY: Patient comes in for evaluation of right ankle. Patient "rolled" it twice. TECHNIQUE: Frontal, lateral and oblique views of the right ankle. COMPARISON: No relevant prior studies available. FINDINGS: Bones/joints: Subcentimeter loose body and the tip of medial malleolus and lateral to cuboid. Soft tissues: Unremarkable. IMPRESSION: No acute findings in the right ankle.
== END 2024-05-02 02:21 | disposition home or self-care (01) ==
LOC: EC 00:57
CPT/HCPCS: 99283